=== PATIENT | female | born 1995 | race Caucasian/White ===

== ENCOUNTER 2017-08-03 07:59 | Day surgery (SDC) | payer OTHER ==
[~2017-08-03] VITALS: Ht 157.5 cm; Wt 99.8 kg
[2017-08-03] MEDS ORDERED: LR 1,000 ML IV ONE (08:00)
[2017-08-03] MEDS ORDERED: ceFAZolin SOD 1 GM in D5W MINI-BAG PLUS 50 ML IV ONE (08:00)
[2017-08-03 08:49] LABS: CONTROL LINE UCG INT CTR LINE PRESENT
[2017-08-03] MEDS ORDERED: BUPIVACAINE/EPIN 0.25% 30 ML VIAL As Ordered ONE (08:57)
[2017-08-03] MEDS ORDERED: dexameTHASONE 4 MG/ML 1ML VIAL (J1100) As Ordered ONE (09:00)
[2017-08-03] MEDS ORDERED: PROPOFOL 200 MG/20 ML VIAL As Ordered ONE (09:00)
[2017-08-03] MEDS ORDERED: MIDAZOLAM INJ 2 MG/2 ML VIAL (J2250) As Ordered ONE (09:00)
[2017-08-03] MEDS ORDERED: LIDOCAINE 2% INJ 100 MG/5 ML SDV (FOR ANES.) As Ordered ONE (09:00)
[2017-08-03] MEDS ORDERED: fentaNYL 100 MCG/2 ML INJECTION (J3010) As Ordered ONE ×2 (09:00→09:11)
[2017-08-03] MEDS ORDERED: ONDANSETRON 4MG/2ML VIAL (J2405) As Ordered ONE (09:00)
[2017-08-03] MEDS ORDERED: ROCURONIUM BROMIDE 50 MG/5 ML VIAL/SYRINGE As Ordered ONE (09:00)
[2017-08-03] MEDS ORDERED: GLYCOPYRROLATE INJ 0.2 MG/ML 2 ML VIAL As Ordered ONE (09:49)
[2017-08-03] MEDS ORDERED: NEOSTIGMINE 1MG/ML 5 ML SYRINGE (J2710) As Ordered ONE (09:49)
[2017-08-03] MEDS ORDERED: HYDROmorphone HCL 2 MG/ML 1ML VIAL (J1170) As Ordered ONE (09:56)
[2017-08-03] MEDS ORDERED: SUGAMMADEX SODIUM 500 MG/5 ML VIAL (BRIDION) As Ordered ONE (10:03)
[2017-08-03] MEDS ORDERED: LR 1,000 ML IV SCH ×2 (10:30→10:45)
[2017-08-03] MEDS ORDERED: NORCO, ANEXSIA 5/325MG TABLET (HYDROcodone/ACETAMINOPHEN) PO PRN (10:30)
[2017-08-03] MEDS ORDERED: MORPHINE 2 MG/ML 1ML SYRINGE IV PRN (10:30)
[2017-08-03] MEDS ORDERED: ONDANSETRON 4MG/2ML VIAL (J2405) IV PRN ×2 (10:30→10:45)
--- NOTE | 2017-08-03 10:43 | RO ---
DATE OF PROCEDURE: 08/03/2017 PREOPERATIVE DIAGNOSIS: Symptomatic gallbladder dysfunction. POSTOPERATIVE DIAGNOSIS: Symptomatic gallbladder dysfunction. PROCEDURE: Laparoscopic cholecystectomy. SURGEON: Nawaf Eugene MD WEB MARKETING ASSISTANT: ANESTHESIA: General endotracheal anesthesia. ESTIMATED BLOOD LOSS (EBL): Minimal. FLUID: Crystalloid. DESCRIPTION OF PROCEDURE: The patient was brought to the operating room and was given general anesthesia. After adequate anesthesia and preoperative antibiotics were given, the patient was prepped and draped in the usual sterile fashion. Next, a supraumbilical incision was made with skin knife. Blunt dissection was carried down to fascia. Fascia was grasped with Preston clamps, elevated and a Veress needle placed into the abdominal cavity insufflated to 15 mm of pressure. A dilating 10 mm trocar was placed at the umbilicus under direct visualization and an epigastric and two lateral trocars were placed. Gallbladder was seen, grasped and retracted superiorly. There was some adhesions of the gallbladder to the omentum, which were taken down with hook cautery. The gallbladder was then lifted superiorly over the liver edge and the neck of the gallbladder then was cleared of peritoneum overlying the neck of the gallbladder with hook cautery. Next, this continued along the lateral as well as medial and the anterior aspect. The cystic duct was well visualized during this dissection, and after this area was opened up laterally dissection was continued medially where the cystic duct node was appreciated and dissection behind the neck gallbladder was performed on this side. After opening up this side as well, the cystic artery was visualized. It was mobilized and then clipped proximally, distally and transected. The cystic duct was better visualized at this time and tapered quite quickly into a very small cystic duct, which was clipped proximally and distally and transected. The gallbladder was taken from the gallbladder bed using electrocautery. In the midportion of the gallbladder itself there was a vein coming off that was also clipped prior to removal from the gallbladder bed. Otherwise, no other significant abnormality was appreciated. The gallbladder was placed in an EndoCatch bag and brought out through the umbilicus. The right upper quadrant was copiously irrigated until clear, and the operative field was clean and dry with clips intact. All trocars were removed under direct visualization. #0 Vicryl was used close the fascia at the umbilicus and all incisions were closed with #4-0 Vicryl. Steri-Strips and a dry sterile dressing was applied, and the patient was awakened, extubated, brought to recovery room awake, alert and hemodynamically stable. Sponge and needle counts correct times two.
[2017-08-03] MEDS ORDERED: fentaNYL 100 MCG/2 ML INJECTION (J3010) IV PRN (10:45)
[2017-08-03] MEDS ORDERED: PERCOCET 5MG/325MG TAB PO PRN (10:45)
[2017-08-03] MEDS ORDERED: KETOROLAC 30 MG/ML VIAL (J1885) IV SCH (11:00)
[2017-08-03 13:00] VITALS: BP 124/70
== END 2017-08-03 13:55 | disposition home or self-care (01) ==
LOC: M SDC 07:59
PROVIDERS: ATTEND Surgery
DX: K81.2 Acute cholecystitis with chronic cholecystitis (principal)

== ENCOUNTER 2020-08-13 16:11 | Inpatient (IN) | payer OTHER ==
[~2020-08-13] VITALS: Ht 162.6 cm; Wt 113.6 kg
[2020-08-13 16:41] LABS: HEMATOCRIT 40.8 % (36.0-47.0); HEMOGLOBIN 13.4 g/dl (12.0-15.5); MEAN CORPUSCULAR HEMOGLOBIN 28.6 pg (27.0-33.0); MEAN CORPUSCULAR HGB CONC 32.8 g/dl (32.0-36.5); PLATELET COUNT, AUTOMATED 304 10^3/uL (150-450); RED BLOOD COUNT 4.69 10^6/uL (4.00-5.40); WHITE BLOOD COUNT 9.5 10^3/uL (4.0-10.0)
[2020-08-13 17:04] LABS: HCG, SERUM QUALITATIVE NEGATIVE (NEGATIVE)
[2020-08-13 17:16] LABS: ACETAMINOPHEN LEVEL < 2.0 UG/ML (10.0-30.0); ALBUMIN 3.6 GM/DL (3.2-5.2); ALT/SGPT 22 U/L (12-78); BILIRUBIN,DIRECT 0.1 MG/DL (0.0-0.2); BILIRUBIN,TOTAL 0.4 MG/DL (0.2-1.0); BLOOD UREA NITROGEN 11 MG/DL (7-18); CALCIUM LEVEL 8.9 MG/DL (8.5-10.1); CARBON DIOXIDE LEVEL 27 MEQ/L (21-32); CHLORIDE LEVEL 107 MEQ/L (98-107); ETHYL ALCOHOL (ETHANOL) < 0.003 % (0.000-0.010); GLOMERULAR FILTRATION RATE > 60.0 (>60); GLUCOSE, FASTING 88 MG/DL (70-100); POTASSIUM SERUM 4.1 MEQ/L (3.5-5.1); SALICYLATE LEVEL < 1.7 MG/DL (5.0-30.0); SODIUM LEVEL 139 MEQ/L (136-145); TOTAL PROTEIN 7.8 GM/DL (6.4-8.2)
[2020-08-13 21:09] LABS: AMPHETAMINES LEVEL URINE NEGATIVE (NEGATIVE); BARBITURATES URINE NEGATIVE (NEGATIVE); BENZODIAZEPINES URINE NEGATIVE (NEGATIVE); CANNABINOIDS URINE NEGATIVE (NEGATIVE); COCAINE METABOLITE URINE NEGATIVE (NEGATIVE); METHADONE URINE NEGATIVE (NEGATIVE); OPIATES URINE NEGATIVE (NEGATIVE); PHENCYCLIDINE URINE NEGATIVE (NEGATIVE)
[2020-08-14] MEDS ORDERED: traZODone 50 MG TAB PO PRN (16:15)
[2020-08-14] MEDS ORDERED: IBUPROFEN 400 MG TAB PO PRN (16:15)
[2020-08-14] MEDS ORDERED: LORazepam 1 MG TAB PO PRN (16:15)
[2020-08-14 17:02] VITALS: BP 155/82
[2020-08-15 06:10] VITALS: BP 124/71
--- NOTE | 2020-08-15 09:31 | MHHPEPDOC ---
[facility] History & Physical History and Physical DATE OF ADMISSION: Aug 14, 2020 at 16:12 Subjective HPI: Patient, female, was admitted to the inpatient mental health unit after reportedly making vague suicidal thoughts to her therapist, who she sees via telehealth. Patient reportedly has multiple stressors including a brother who attempted to commit suicide that she no longer speaks to. She reports some other family troubles that are causing her to have some low mood hopelessness, loss of interest, and loss of energy. She reports a history of elevated mood episodes with impulsivity and decreased need for sleep. This past April she was impulsive and had to do various motions to keep herself from feeling excessively irritable . No significant medical problems. Allergies, surgical history, and PSA report have been reviewed. Patient wants to be discharged tomorrow and denies and suicidal thoughts. MEDICATIONS: She is primarily treated as an outpatient but not on any current medication at this time. MEDICAL HISTORY: No history of mental health admissions or suicide attempts. She reportedly has a history of bipolar disorder and a family history of depression and suicide attempts. SOCIAL HISTORY - OCCUPATION: She currently works. Patient denies any substance use of tobacco, alcohol, or marijuana. SOCIAL HISTORY - LIVING SITUATION: Patient currently lives with her and reports marital troubles, she stated that they had difficulties before marriage. She attempted to him to improve the relationship and has not. TESTS: Patient screens negative for psychotic disorders and PTSD at this time. Objective Appearance: Well groomed. Appears to be stated age. Well nourished. Speech: Normal volume. Spontaneous and Fluid. Normal rate. Cognition: Alert, Attentive, and Oriented to person, place, time. Thought Form: Linear and goal directed. Thought Content: Doesnt appear to be responding to internal stimuli. No evidence of aggressive or homicidal ideation. No thoughts of self harm. No evidence of delusions. No evidence of suicidal ideation. Judgement: Intact as evidenced by decision making in the recent past. Assessment F31.9 Bipolar disorder, unspecified Plan Estimated stay is 1-3 days. Start Abilify 5 mg daily and observe overnight, patient is open to trying Abilify. Will reevaluate in 48 hours whether patient meets criteria for involuntary extension Vital Signs Vital Signs Date Time Temp Pulse Resp B/P (MAP) Pulse Ox O2 Delivery O2 Flow Rate FiO2 08/15/20 08:36 Room Air 08/15/20 06:10 97.6 57 15 124/71 (88) 99 Medications No Active Prescriptions or Reported Meds Allergies Coded Allergies: No Known Allergies (Unverified , 08/13/20) RAVINDRA GARIBAY DO Aug 15, 2020 09:31
[2020-08-15 18:35] VITALS: BP 132/68
[2020-08-16 06:35] VITALS: BP 117/67
--- NOTE | 2020-08-16 10:10 | MHDSPDOC ---
[facility] Discharge Summary Discharge Summary DATE OF ADMISSION: Aug 14, 2020 at 16:12 DATE OF DISCHARGE:Aug 16, 2020 at 13:20 DISCHARGE DIAGNOSES: F31.9 Bipolar disorder, unspecified CONSULTANTS INVOLVED:[ None (basic hospitalist screening)] REASON FOR ADMISSION & TREATMENT AND PROGRESS ON THE UNIT : The patient was admitted to the inpatient mental health unit, her suicidality rapidly resolved, she was started on Abilify 5 mg with some good improvement in her mood. She did well the unit with no behavioral problems was isolative to rooms of time but was able to meet with staff without issue. DISCHARGE ASSESSMENT[improved] Legal status considerations: The patient at the time of discharge did not meet criteria for involuntary admission/extension due to having a [normal] mental status exam, [fair] insight into the situation, They are engaged in the discharge process, as well as being friendly and amenable in behavioral control and havent been engaging in any o bserved concerning behavior or ideation recently. They decline voluntary extension/admission at this time and must be discharged in good adriel, as Im unable to make a case for holding the patient against their will. They may have historical risk factors of admissions and other interactions with psychiatry however, those are not modifiable from a clinical perspective. The patient will need to be discharged in good adriel. MENTAL STATUS EXAMINATION ON DISCHARGE: [General: Well dressed with good hygiene Speech: Spontaneous and fluid Thought processes: Linear and logical Thought content: Future orientated Abstract reasoning, and computation: Intact Description of associations: Intact Description of abnormal or psychotic thoughts:Denies any suicidal or homicidal ideation. Denies any auditory or visual hallucinations. Does not appear to be responding to internal stimuli. Does not appear to be endorsing any bizarre or paranoid ideation. Judgment: fair Insight: fair Orientation: Alert and orientated 3 Recent and remote memory: Intact Attention span and concentration: Intact Fund of knowledge: Adequate Mood: "okay" Affect: Euthymic with a full range] PLAN/FOLLOWUP ARRANGEMENTS: Follow up appointments made (PCP and MH in 5 days of D/C date) and safety plan completed. Safety Planning aspects completed prior to discharge [Medication supplies limited to 7 days with 4 refills to prevent accumulation to OD] [Family contact completed, educated on safe practices, instructed on removal and mitigation of dangerous means] [RN reviewed crisis hotline information and other aspects to empower patient to access care in interim before next appointment.] The amount of time spent in the coordination of care for this patient was approximately 30 minutes. Vital Signs/I&Os Vital Signs Date Time Temp Pulse Resp B/P (MAP) Pulse Ox O2 Delivery O2 Flow Rate FiO2 08/16/20 06:35 97.9 60 16 117/67 (84) 98 Room Air Medications Scheduled Aripiprazole (Abilify) 5 Mg Tablet, 5 MG PO QHS for mood for 7 Days, #7 Allergies Coded Allergies: No Known Allergies (Unverified , 08/13/20) RAVINDRA GARIBAY DO Aug 16, 2020 10:10
[2020-08-16] MEDS ORDERED: ABIL1TAB11 PO (11:14)
--- NOTE | 2020-08-17 10:00 | ECGEPIP ---
[facility] - ED Test Date: 2020-08-13 Pat Name: ALEKSANDAR HECK Department: Room: - Gender: Female Drop Board Man: : 1995 Requested By: LULU Ulloa Order Number: [id number] Reading MD: Lamberto Gage Measurements Intervals [place] Rate: 70 P: 29 NV: 170 QRS: 43 QRSD: 88 T: 3 QT: 368 QTc: 398 Interpretive Statements SINUS RHYTHM NSTTW ABNORMALITIES NO PRIORS FOR COMPARISON Electronically Signed on 08-17-2020 10:00:29 EDT by Lamberto Gage
--- NOTE | 2020-08-20 09:51 | HPE ---
DATE OF ADMISSION: 08/14/2020 DATE OF DICTATION: 08/15/2020 CHIEF COMPLAINT: Bipolar disorder HISTORY OF PRESENT ILLNESS: 24-year-old with history of bipolar disorder, laparoscopic cholecystectomy in 2017 admitted to the inpatient mental health unit. She otherwise has no medical complaints. Denied fever, chills, changes in appetite, weight, denies any sore throat, eye discharge, rhinorrhea, tinnitus, nasal congestion, shortness of breath, chest pain, pressure, tightness, lightheadedness or dizziness, nausea, vomiting, diarrhea, abdominal, dysuria, urgency, frequency, fevers or chills, weight gain, weight loss, generalized fatigue, upper and lower extremity weakness, bright red blood per rectum, melena or black tarry stools. No skin lesions or lumps or bumps. No abnormal nodules, no breast masses. No unusual vaginal bleeding or discharge. 12-point system otherwise negative. PAST MEDICAL HISTORY: 1. Cholecystitis 2. Bipolar disorder. PAST SURGICAL HISTORY: Laparoscopic cholecystectomy ALLERGIES: No known drug allergies. HOSPITAL MEDICATIONS: Abilify 5 mg q.h.s., trazodone 50 mg q.h.s. as needed, ibuprofen 400 mg q 6 hours as needed for pain, Ativan 1 mg b.i.d. as needed for agitation. SOCIAL HISTORY: The patient previously worked part-time doing elderly care. Denies any recreational drug use, alcohol or cigarette use. FAMILY HISTORY: Mother alive in her 40s with hypertension. Father unknown REVIEW OF SYSTEMS: Per history of present illness, 12-point system otherwise negative. PHYSICAL EXAMINATION: Temperature 97.6, pulse 57, respiratory rate 15, blood pressure 124/71, 99% on room air. General: The patient is awake, alert, oriented x3 answering questions appropriately. No jugular venous distention (JVD), no thyromegaly, no cervical lymphadenopathy. Lungs are clear to auscultation. No wheezing, rales or rhonchi. Heart: S1, S2. Sinus rhythm. Abdomen: Soft, nontender, non-distended. Positive bowel sounds. Extremities: No cyanosis, clubbing or pitting edema. LABORATORY DATA: Reviewed. ASSESSMENT AND PLAN: This is a 23-year-old admitted for bipolar disorder, history of laparoscopic cholecystectomy due to acute cholecystitis in the past, with no medical complaints. IMPRESSION: Bipolar disorder managed by psychiatrist. Medical attending will be signing off as she has no acute medical problems. MERY
== END 2020-08-16 13:20 | disposition home or self-care (01) | DRG 753 ==
LOC: M ED 16:11 → M ED INP 08-14 16:12 → M PSY 08-14 17:20
PROVIDERS: ADMIT Psychiatry & Neurology Addiction Medicine; ATTEND Psychiatry & Neurology Addiction Medicine
DX: F31.9 Bipolar disorder, unspecified (principal); R45.851 Suicidal ideations

== ENCOUNTER 2022-01-13 13:06 | Inpatient (IN) | payer OTHER ==
[~2022-01-13] VITALS: Ht 162.6 cm; Wt 113.6 kg
[~2022-01-13 13:06] MED LIST: ABIL1TAB11 PO
[2022-01-13 13:43] LABS: HEMOGLOBIN 13.7 g/dl (12.0-15.5); MEAN CORPUSCULAR HEMOGLOBIN 27.5 pg (27.0-33.0); MEAN CORPUSCULAR HGB CONC 32.6 g/dl (32.0-36.5); MEAN CORPUSCULAR VOLUME 84.3 fl (80.0-96.0); PLATELET COUNT, AUTOMATED 285 10^3/uL (150-450); RED BLOOD COUNT 4.98 10^6/uL (4.00-5.40); WHITE BLOOD COUNT 9.8 10^3/uL (4.0-10.0)
[2022-01-13 14:13] LABS: HCG, SERUM QUALITATIVE NEGATIVE (NEGATIVE)
[2022-01-13 14:14] LABS: ACETAMINOPHEN LEVEL < 2.0 UG/ML (10.0-30.0); ALBUMIN 3.8 GM/DL (3.2-5.2); ALT/SGPT 26 U/L (12-78); BILIRUBIN,DIRECT 0.1 MG/DL (0.0-0.2); BILIRUBIN,TOTAL 0.3 MG/DL (0.2-1.0); BLOOD UREA NITROGEN 12 MG/DL (7-18); CALCIUM LEVEL 9.3 MG/DL (8.5-10.1); CARBON DIOXIDE LEVEL 26 MEQ/L (21-32); CHLORIDE LEVEL 105 MEQ/L (98-107); CREATININE FOR GFR 0.59 MG/DL (0.55-1.30); ETHYL ALCOHOL (ETHANOL) < 0.003 % (0.000-0.010); GLOMERULAR FILTRATION RATE > 60.0 (>60); GLUCOSE, FASTING 91 MG/DL (70-100); POTASSIUM SERUM 4.2 MEQ/L (3.5-5.1); SALICYLATE LEVEL < 1.7 MG/DL (5.0-30.0); SODIUM LEVEL 138 MEQ/L (136-145); TOTAL PROTEIN 7.6 GM/DL (6.4-8.2)
[2022-01-13 15:18] LABS: RSV AMPLIFICATION NEGATIVE (NEGATIVE)
[2022-01-13 16:19] LABS: AMPHETAMINES LEVEL URINE NEGATIVE (NEGATIVE); BARBITURATES URINE NEGATIVE (NEGATIVE); BENZODIAZEPINES URINE NEGATIVE (NEGATIVE); CANNABINOIDS URINE NEGATIVE (NEGATIVE); COCAINE METABOLITE URINE NEGATIVE (NEGATIVE); METHADONE URINE NEGATIVE (NEGATIVE); OPIATES URINE NEGATIVE (NEGATIVE); PHENCYCLIDINE URINE NEGATIVE (NEGATIVE)
[2022-01-13] MEDS ORDERED: ZOLO100T PO (17:08)
[2022-01-13] MEDS ORDERED: HOME MED LIST COMPLETE! XX SCH (17:10)
[2022-01-13] MEDS ORDERED: LORazepam 1 MG TAB PO PRN (18:50)
[2022-01-13] MEDS ORDERED: MAALOX 30 ML SUSP *UDC PO PRN (18:50)
[2022-01-13] MEDS ORDERED: traZODone 50 MG TAB PO PRN (18:50)
[2022-01-13] MEDS ORDERED: MOM 30ML SUSPENSION UDC PO PRN (18:50)
[2022-01-13] MEDS ORDERED: ACETAMINOPHEN TAB 650MG DOSE (2X325MG) PO PRN (18:50)
[2022-01-13 20:19] VITALS: BP 140/76
[2022-01-14 06:56] VITALS: BP 123/82
[2022-01-14] MEDS ORDERED: INFLUENZA QUADRIVALENT PF VACCINE 0.5ML SYRINGE IM ONE (09:00)
[2022-01-14] MEDS ORDERED: hydrOXYzine 50 MG TAB PO PRN (09:55)
[2022-01-14] MEDS ORDERED: OLANZapine ORAL DISINTEGRATING TAB 5MG PO PRN (09:55)
[2022-01-14] MEDS: SERTRALINE HCL 50 MG TAB PO SCH (13:26)
[2022-01-14 17:05] VITALS: BP 120/78
[2022-01-15 06:53] VITALS: BP 128/65
[2022-01-15] MEDS: SERTRALINE HCL 50 MG TAB PO SCH (08:57)
== END 2022-01-15 13:15 | disposition home or self-care (01) | DRG 754 ==
LOC: M ED 13:06 → M PSY 20:50
PROVIDERS: ADMIT Psychiatry & Neurology Psychiatry; ATTEND Psychiatry & Neurology Psychiatry
DX: F43.21 Adjustment disorder with depressed mood (principal); F31.9 Bipolar disorder, unspecified; F41.9 Anxiety disorder, unspecified

== ENCOUNTER 2023-08-30 21:19 | Emergency (ER) | payer OTHER ==
[~2023-08-30] VITALS: Ht 162.6 cm; Wt 117.6 kg
[~2023-08-30 21:19] MED LIST changes: +ZOLO100T PO
[2023-08-30 21:57] LABS: HEMATOCRIT 39.9 % (36.0-47.0); HEMOGLOBIN 12.9 g/dl (12.0-15.5); MEAN CORPUSCULAR HEMOGLOBIN 27.8 pg (27.0-33.0); MEAN CORPUSCULAR HGB CONC 32.3 g/dl (32.0-36.5); PLATELET COUNT, AUTOMATED 311 10^3/uL (150-450); RED BLOOD COUNT 4.64 10^6/uL (4.00-5.40); WHITE BLOOD COUNT 8.1 10^3/uL (4.0-10.0)
[2023-08-30 22:28] LABS: ALBUMIN 4.1 G/DL (3.2-5.2); ALKALINE PHOSPHATASE 113 U/L (46-116); ALT/SGPT 26 U/L (7.0-40); AST/SGOT 22 U/L (<34); BILIRUBIN,TOTAL 0.3 MG/DL (0.3-1.2); BLOOD UREA NITROGEN 8 MG/DL (9-23); CALCIUM LEVEL 9.3 MG/DL (8.5-10.1); CARBON DIOXIDE LEVEL 30 MMOL/L (20-31); CHLORIDE LEVEL 104 MMOL/L (98-107); CREATININE FOR GFR 0.67 MG/DL (0.55-1.30); GLOMERULAR FILTRATION RATE > 60.0 (>60); GLUCOSE, FASTING 82 MG/DL (60-100); POTASSIUM SERUM 3.8 MMOL/L (3.5-5.1); SODIUM LEVEL 140 MMOL/L (136-145); TOTAL PROTEIN 7.5 G/DL (5.7-8.2)
[2023-08-30 23:46] LABS: GC DNA AMPLIFICATION NEGATIVE (NEGATIVE)
[2023-08-31 02:48] VITALS: BP 133/68; TEMP 98.5; O2SAT 99
== END 2023-08-31 02:50 | disposition home or self-care (01) ==
LOC: M ED 21:19
DX: R10.9 Unspecified abdominal pain (principal); K62.89 Other specified diseases of anus and rectum; Z79.899 Other long term (current) drug therapy